=== PATIENT | female | born 1950 | race Caucasian/White ===

== ENCOUNTER → 2016-10-17 | Outpatient (CLI) | payer MEDICARE, BC ==
[~2016-10-17] MED LIST: SODIUM HYPOCHLORITE 0.125% 473 ML BTL ONE
[2016-10-17 12:52] LABS: CREATININE 0.79 mg/dl (0.44-1.00)
== END | disposition home or self-care (01) ==
LOC: LAB 11:40
PROVIDERS: ATTEND Surgery
DX: S71.101D Unspecified open wound, right thigh, subsequent encounter (principal)
CPT/HCPCS: 82565; 84520

== ENCOUNTER → 2016-10-19 | Outpatient (CLI) | payer MEDICARE ==
[~2016-10-19] MED LIST changes: +IOHEXOL 300MG/ML 150 ML BTL ONE; +SOD CHLORIDE 0.9% 100 ML ONE; -SODIUM HYPOCHLORITE 0.125% 473 ML BTL ONE
--- NOTE | 2016-10-19 17:32 | RADRPT ---
PROCEDURE: CT Abdomen and Pelvis with contrast. CLINICAL INDICATION: Abdomen and pelvis pain. Right thigh and pelvic fluid. TECHNIQUE: CT scan of the abdomen and pelvis with contrast was performed. The patient was scanned following the uncomplicated intravenous administration of 100 cc of Omnipaque-300. Coronal and sag ittal reformatted images were obtained from the axial source images. Images were reviewed on a high- resolution PACS workstation. Total exam DLP is 911.02 mGy-cm. CTDIvol is 14.26 mGy. One or more o f the following dose reduction techniques were used: Automated exposure control, adjustment of the m A and/or kV according to patient size, use of iterative reconstruction technique. COMPARISON: None. FINDINGS: There is mild atelectasis the right lung base. There is elevation of the right hemidiaphragm. The lung bases are otherwise normal. There is no pleural effusion or pericardial effusion. The heart s ize is normal. The liver is normal in size and diffusely decreased attenuation consistent with fatty metamorphosis. There is no focal hepatic lesion. The gallbladder and bile ducts are normal. The spleen is normal in size. There is no focal splenic lesion. Both adrenals are normal with no enlargement or mass. The pancreas is unremarkable with no mass or evidence of pancreatitis. Both kidneys demonstrate normal contrast enhancement. There is no renal mass or hydronephrosis. The abdominal aorta is not dilated. There is calcification in the aorta consistent with atheroscler osis. There is no retroperitoneal lymphadenopathy or mass. Multiple surgical clips are present bilaterally in the pelvis. The uterus and ovaries appear to be surgically absent. There is a fluid collection with peripheral enhancement anterior to the bladder just superior to the symphysis pubis measuring 1.7 x 1.7 x 1.9 cm in AP, transverse, and cranial cau michele dimensions. A second multiloculated fluid collection is present anterior to the right side of t he symphysis pubis measuring approximately 1.3 x 3.0 x 2.4 cm in AP, transverse, and cranial caudal dimensions. A tract extends from this fluid collection inferiorly into the adductor harvey muscle i n a region measuring approximately 1.7 x 1.6 by 5.5 cm in AP, transverse, and cranial caudal dimensi ons. This also has peripheral enhancement and extends to a skin ulcer in medial right thigh. The bladder and distal ureters are normal. The periappendiceal region is unremarkable with no evidence of appendicitis. The appendix is well se en and appears normal. The bowel and mesentery are otherwise normal. There is no other free fluid or free gas. There is moderate lysis of the symphysis pubis region bilaterally with right worse than left. There is absence of the cortex anteriorly on the right side in a region measuring up to 1.9 cm in length. There is no other lytic lesion. There are mild degenerative changes of the spine. IMPRESSION: 1. Mild atelectasis at the right lung base. 2. Elevation of the right hemidiaphragm. 3. Fatty metamorphosis of the liver. 4. Atherosclerosis. 5. Prior pelvic surgery hysterectomy and probable bilateral oophorectomy. Small fluid collections in the pelvis anterior to the bladder, adjacent to the symphysis pubis, and extending inferiorly in the right adductor harvey muscle to a skin ulcer. Findings are consistent w ith abscess with fistula to the skin. 6. Normal appendix. 7. Osteomyelitis of the symphysis pubis with right worse than left. 8. Mild degenerative changes of the spine. RPTAT: QQ .Prasanna Laws MD, Date Time Electronically viewed and signed by .Prasanna Laws MD, on 10/19/2016 17:31 .R/
== END | disposition home or self-care (01) ==
LOC: C/S 08:54
PROVIDERS: ATTEND Surgery
DX: S30.91XA Unspecified superficial injury of lower back and pelvis, initial encounter (principal); S70.921A Unspecified superficial injury of right thigh, initial encounter; X58.XXXA Exposure to other specified factors, initial encounter
CPT/HCPCS: 74178; Q9967

== ENCOUNTER 2016-11-07 11:50 | Inpatient (IN) | payer MEDICARE, BC ==
[~2016-11-07] VITALS: Ht 152.4 cm; Wt 66.7 kg
[2016-11-07 14:30] VITALS: BP 140/67; RESP 20
[2016-11-07 15:55] LABS: BASOPHIL # 0.1 10^3/ul (0.0-0.1); BASOPHILS % 1.2 % (0.0-2.0); EOSINOPHILS # 0.2 10^3/ul (0.0-0.5); EOSINOPHILS % 2.9 % (0.0-7.0); HEMATOCRIT 33.1 % (37.0-47.0); HEMOGLOBIN 10.7 g/dl (12.0-16.0); LYMPHOCYTES # 2.4 10^3/ul (0.8-2.9); LYMPHOCYTES % 34.9 % (15.0-51.0); MEAN CORPUSCULAR HEMOGLOBIN 28.9 pg (29.0-33.0); MEAN CORPUSCULAR HGB CONC 32.3 g/dl (32.0-37.0); MEAN CORPUSCULAR VOLUME 89.5 fl (82.0-101.0); MEAN PLATELET VOLUME 9.7 fl (7.4-10.4); MONOCYTE # 0.5 10^3/ul (0.3-0.9); NEUTROPHIL # 3.7 10^3/ul (1.6-7.5); NEUTROPHILS % 53.6 % (39.0-77.0); PLATELET COUNT 402 10^3/UL (140-415); RED CELL DISTRIBUTION WIDTH 14.6 % (11.5-14.5); WHITE BLOOD COUNT 6.9 10^3/ul (4.8-10.8)
--- NOTE | 2016-11-07 15:58 | RADRPT ---
PROCEDURE: XR Chest 1 View. CLINICAL INDICATION: Shortness of breath, pubic bone osteomyelitis. TECHNIQUE: AP view of the chest was obtained. COMPARISON: None. FINDINGS: Heart borders are obscured by the opacities. Calcified atherosclerosis is noted in the aorta. [place] christie right hemidiaphragm is identified. Associated atelectasis/consolidation of the right middle and lower lobes is seen. Blunting of the right costophrenic angle is noted. Osseous structures are inta ct. IMPRESSION: Calcified atherosclerosis in the aorta. Elevated right hemidiaphragm with associated atelectasis/consolidation of the right middle and lower lobes. Blunting of the right costophrenic angle that could reflect scarring or small pleural effusion. RPTAT: AA .Jaime Tucker MD, MD Date Time Electronically viewed and signed by .Jaime Tucker MD, on 11/07/2016 15:58 .P/
[2016-11-07 15:59] VITALS: Ht 152.4 cm; Wt 66.7 kg
[2016-11-07 16:01] LABS: INR 1.04; PROTIME 13.6 Sec (12.2-14.2); PT RATIO 1.1
[2016-11-07 16:02] LABS: PARTIAL THROMBOPLASTIN TIME 29.9 Sec (25.0-35.0)
[2016-11-07 16:08] LABS: ALBUMIN 3.4 g/dl (3.3-4.9); ALBUMIN/GLOBULIN RATIO 0.8; BILIRUBIN,INDIRECT 0.1 mg/dl (0-1.1); BILIRUBIN,TOTAL 0.1 mg/dl (0.2-1.3); C-REACTIVE PROTEIN 1.1 mg/dl (0.0-0.9); CALCIUM 8.8 mg/dl (8.4-10.2); CREATININE 0.85 mg/dl (0.44-1.00); POTASSIUM 3.5 mmol/L (3.5-5.1); TOTAL PROTEIN 7.6 g/dl (6.1-8.1)
[2016-11-07] MEDS ORDERED: SYN1 PO (16:13)
[2016-11-07] MEDS ORDERED: CITA10TA84 PO (16:13)
[2016-11-07] MEDS ORDERED: MONT10TA24 PO (16:13)
[2016-11-07] MEDS ORDERED: LISI10TA2 PO (16:13)
[2016-11-07] MEDS ORDERED: ASPI-535 PO (16:13)
[2016-11-07] MEDS ORDERED: ROPI1TAB PO (16:13)
[2016-11-07] MEDS ORDERED: GABA100C14 PO (16:13)
[2016-11-07] MEDS ORDERED: TRAZ50TA18 PO (16:13)
[2016-11-07] MEDS: D5W-0.45 NACL + KCL 20 MEQ 1,000 ML IV SCH (18:31)
[2016-11-07] MEDS: GABAPENTIN 100 MG CAP PO SCH (18:44)
[2016-11-07] MEDS: CITALOPRAM 20 MG TAB PO SCH (18:44)
[2016-11-07] MEDS: ASPIRIN (EC) 81 MG TAB PO SCH (18:44)
[2016-11-07] MEDS: LISINOPRIL 10 MG TAB PO SCH (18:44)
[2016-11-07 20:48] VITALS: BP 113/58; RESP 18
[2016-11-07] MEDS: ROPINIROLE 1 MG TAB PO SCH (20:57)
[2016-11-07] MEDS: traZODone 50 MG TAB PO SCH (20:57)
[2016-11-07] MEDS: MONTELUKAST 10 MG TAB PO SCH (20:58)
[2016-11-08 02:51] VITALS: BP 107/52; RESP 18
[2016-11-08] MEDS ORDERED: LEVOTHYROXINE 100 MCG TAB ONE (05:56)
[2016-11-08] MEDS: LEVOTHYROXINE 100 MCG TAB PO SCH (05:58)
[2016-11-08 08:04] VITALS: BP 135/58; RESP 20
--- NOTE | 2016-11-08 09:09 | CONS ---
DATE OF ADMISSION: 11/07/2016 DATE OF CONSULTATION: 11/07/2016 CHIEF COMPLAINT: Abdominal pain. HISTORY OF PRESENT ILLNESS: This is a 66-year-old female, with previous abscess of the pelvis and right thigh, who has been treated by Dr. Mack. According to the patient, she had drainage from the right inner thigh. She had a large open wound, which has been debrided and closed. She is complaining of pain in her abdomen. She denies any groin pain or knee pain. She denies any recent fevers or chills. She was previously on home IV antibiotics. She has no other complaints. PAST MEDICAL HISTORY: Hypertension, hypothyroidism, osteomyelitis. MEDICATIONS: 1. Celexa. 2. Gabapentin. 3. Synthroid. 4. Zestril. 5. Trazodone. PAST SURGICAL HISTORY: Right thigh incision and debridement by Dr. Mack. SOCIAL HISTORY: Denies tobacco, alcohol, or drug use. FAMILY HISTORY: Noncontributory. PHYSICAL EXAMINATION: VITAL SIGNS: 98.1, 113/58, 87, pulse, respiratory rate of 18. GENERAL: Patient is in no acute distress. She is alert and oriented x3. She is cooperative during the examination. EXTREMITIES: Right lower extremity: There is a dressing over the right medial thigh. No active drainage is seen. She has full range of motion of the left hip including 0-90 degrees of flexion, 50 degrees of external rotation, 20 degrees of internal rotation. She has no pain with axial loading or range of motion. She has 5/5 strength of her quadriceps, hamstring, gastroc soleus, and tibialis anterior. She has palpable dorsalis pedis pulses. DIAGNOSTIC STUDIES: CT abdomen pelvis 10/19/2016: There is a fluid collection in the pelvis anterior to the bladder. There is a fistula to the skin. There is osteomyelitis of the pubic symphysis. IMPRESSION: A 66-year-old female, with pubic symphysis, osteomyelitis, and a pelvic abscess. PLAN: I recommend continuation of IV antibiotics. I recommend Infectious Disease consult. No orthopedic intervention is required. Patient can be weightbearing as tolerated. Thank you for the consultation. I will follow the patient along. Dictated By: Tiffany Barber MD /zoila/eliana /Document#: [id number]
[2016-11-08] MEDS: GABAPENTIN 100 MG CAP PO SCH (09:17)
[2016-11-08] MEDS: D5W-0.45 NACL + KCL 20 MEQ 1,000 ML IV SCH ×2 (09:19→21:36)
[2016-11-08] MEDS: CITALOPRAM 20 MG TAB PO SCH (09:19)
[2016-11-08] MEDS: ASPIRIN (EC) 81 MG TAB PO SCH (09:19)
[2016-11-08] MEDS: LISINOPRIL 10 MG TAB PO SCH (09:22)
[2016-11-08 14:00] VITALS: BP 117/54; RESP 19
--- NOTE | 2016-11-08 15:42 | CONS ---
Date/Time of Note Date/Time of Note DATE: 11/08/16 TIME: 15:42 Assessment/Plan Assessment/Plan Chief Complaint/Hosp Course 1. Right thigh wound with fluid collection and osteomyelitis -ID and ortho consults -possible fluid collection drainage -local care with dakins -iv abx 2. Osteomyelitis: s/p abx course -as above 3. Atelectasis vs. consolidation poss pl effusion: R M/L lobes -further workup per medical team -ambulate -IS -supportive 4. HTN history: -nutrition and med optimization 5. Normocytic anemia: no acute blood loss -monitor -transfuse prn -workup per medical team 6. Hypothyroidism history -medical maintenance 7. Depression and anxiety -medical and psychiatric optimization 8. Epilepsy -medication control Patient seen and examined in collaboration with Dr. Iam Mack. Thank you. Problems: Consultation Date/Type/Reason Admit Date/Time Nov 07, 2016 at 13:27 Date of Consultation: Nov 08, 2016 Type of Consultation: surgical Reason for Consultation right thigh wound Hx of Present Illness iMroslava Franklin is a 66-year-old woman who is known to us, currently being seen at the wound clinic. She was recently hospitalized at [facility] for a large right thigh wound, status post debridement in September that is currently healing well. At that time she was found to have osteomyelitis and pyomyositis for which she was initially given IV antibiotics. At that time however, she developed a generalized body rash with welts and she was then switched to oral antibiotics. She has finished her course of oral antibiotics. Although her wound healing has progressed significantly, she still has a deep tunneling of the wound and MRI shows medial right upper thigh skin ulceration with sinus tract extending to the adductor longus muscle with a previously seen fluid collection appears decreased in size though there is persistent ill-defined phlegmonous change and adductor myositis, as well as osteo of right pubic symphysis. She was admitted to [facility] for further evaluation and treatment. Constitutional: No chills, No febrile Eyes: No visual change ENT: No congestion Respiratory: No cough, No shortness of breath Cardiovascular: No chest pain, No lightheadedness Gastrointestinal: No diarrhea, No nausea, No vomiting Genitourinary: No dysuria Musculoskeletal: No back pain, No neck pain Skin: other (wound right thigh), No bruising, No erythema Neurologic: No focal-weakness, No syncope Psychological: anxiety, No nl mood/affect Past Medical History 1. Asthma. 2. Depression. 3. Hypertension. 4. Hiatal hernia. 5. Hypothyroidism. 6. Neuropathy. 7. Cervical cancer history. 8. Right thigh skin necrosis and infection. 9. Arthritis. 10. Anxiety. 11. Hyponatremia. 12. Renal insufficiency. 13. Hyperglycemia. 14. Abnormal LFTs. 15. Significant hypoalbuminemia. 16. Coagulopathy. 17. Significant leukocytosis. 18. Anemia. 19. Thrombocytosis. 20. Possible sepsis. 21. right thigh abscess/ necrotic wound 22. osteomyelitis 23. pyomyositis Past Surgical History Total abdominal hysterectomy and oophorectomy. debridement of right thigh Family History Significant Family History: no pertinent family hx Social History Alcohol Use: none Smoking Status: Former smoker Drug Use: none Exam/Review of Systems Vital Signs Vitals Vital Signs Date Time Temp Pulse Resp B/P Pulse Ox O2 Delivery O2 Flow Rate FiO2 11/08/16 14:00 97.9 90 19 117/54 95 Intake and Output 11/07/16 11/07/16 11/08/16 15:00 23:00 07:00 Intake Total 100 ml 1210 ml Output Total 3 ml Balance 100 ml 1207 ml Exam Constitutional: alert, oriented Psych: anxiety Head: atraumatic, normocephalic Eyes: nl lids, nl sclera ENMT: mucosa pink and moist Neck: non-tender, supple Respiratory: normal air movement Cardiovascular: edema (ble), regular rate and rhythm Gastrointestinal: bowel sounds (x4 quads), non-tender, soft, No distended Musculoskeletal: muscle weakness, nl extremities to inspection Extremities: normal pulses Neurological: nl mental status, nl speech (soft/hoarse voice) Skin: other (right thigh wound, nonmalodorous, min drainage) Results Result Diagram: 11/07/16 1517 11/07/16 1517 Medications Medications Current Medications Potassium Chloride/Dextrose/ Sod Cl (D5-1/2ns + KCl 20 Meq) 1,000 ml @ 70 mls/ hr [id number] IV Last administered on 11/08/16 09:19; Admin Dose 70 MLS/HR; Start 11/07/16 at 17:00 Aspirin (Halfprin) 81 mg DAILY PO Last administered on 11/08/16 09:19; Admin Dose 81 MG; Start 11/07/16 at 18:00 Citalopram Hydrobromide (Celexa) 10 mg DAILY PO Last administered on 11/08/16 09:19; Admin Dose 10 MG; Start 11/07/16 at 18:00 Gabapentin (Neurontin) 100 mg DAILY PO Last administered on 11/08/16 09:17; Admin Dose 100 MG; Start 11/07/16 at 18:00 Lisinopril (Zestril) 10 mg DAILY PO Last administered on 11/08/16 09:22; Admin Dose 10 MG; Start 11/07/16 at 18:00 Montelukast Sodium (Singulair) 10 mg QHS PO Last administered on 11/07/16 20: 58; Admin Dose 10 MG; Start 11/07/16 at 21:00 Ropinirole HCl (Requip) 1 mg HS PO Last administered on 11/07/16 20:57; Admin Dose 1 MG; Start 11/07/16 at 21:00 Trazodone HCl (Desyrel) 50 mg QHS PO Last administered on 11/07/16 20:57; Admin Dose 50 MG; Start 11/07/16 at 21:00 Miscellaneous Information Patients own medicat... BID@ XX ; Start 11/08/16 at 10:00 OSWALDO BRENNER NP Nov 08, 2016 15:42 Miscellaneous Information Patients own medicat... BID@, XX ; Start 11/08/16 at 10:00 OSWALDO BRENNER NP Nov 08, 2016 15:42
--- NOTE | 2016-11-08 15:48 | RADRPT ---
PROCEDURE: MRI of the right hip and right lower extremity CLINICAL INDICATION: Pelvic and hip pain, concern for osteomyelitis near pubic bone TECHNIQUE: Multiplanar multisequence images of the pelvis and right lower extremity without IV con trast. Images were interpreted at a independent PACS workstation. COMPARISON: Correlation with CT of the abdomen and pelvis dated October 19, 2016 FINDINGS: There is a medial right upper thigh skin ulceration (axial 18) with sinus tract and mild phlegmonous changes within the adductor longus muscle extending near the pubic symphysis. The fluid collection appears improved from the prior study though there is still persistent edema/myositis within the add uctor musculature (coronal 13). There is no new discrete drainable fluid collection. There is decreased T1 and increased STIR bone marrow signal at the pubic symphysis, right greater th an left that is compatible with osteomyelitis. Accounting for differences in technique this is not s ignificantly changed from prior.. There is no evidence of acute fracture. Intra-articular evaluation of the right hip demonstrates mild osteoarthrosis with degenerative teari ng of the anterosuperior labrum and low grade adjacent chondral fissuring. There is a small nonspeci fic hip joint effusion and there is a mild iliopsoas bursitis (axial 12). There is no stress or trau matic fracture. There is no avascular necrosis. There is partial thickness tearing of the hamstring origins bilaterally background moderate tendinos is without evidence of high-grade tear (coronal 19). The gluteal insertions are intact noting mild p usman tendinous edema and mild bilateral greater trochanteric bursitis. The iliopsoas insertion is int act. There are sclerotic and erosive changes at the sacroiliac joints that may reflect an chronic inflamm atory sacroiliitis. This is incompletely assessed at the edge of the field of view. IMPRESSION: 1. Medial right upper thigh skin ulceration with sinus tract extending to the adductor longus muscle . The previously seen fluid collection appears decreased in size though there is persistent ill-defi vj phlegmonous change and adductor myositis. 2. Abnormal marrow signal at the pubic symphysis, right greater than left, likely reflecting osteomy elitis, as on prior. 3. Mild degenerative changes of the right hip including low grade chondral loss and degenerative tea ring of the anterosuperior labrum. Small right hip joint effusion with synovitis and mild right ilio psoas bursitis. 4. Bilateral hamstring origin tendinosis and partial-thickness tearing without high-grade tear. 5. Mild bilateral greater trochanteric bursitis. 6. Incompletely assessed chronic bilateral inflammatory sacroiliitis. 7. No stress/traumatic fracture or avascular necrosis. RPTAT: UU .Chaz Max MD, MD Date Time Electronically viewed and signed by .Chaz Max MD, on 11/08/2016 15:48 .K/
--- NOTE | 2016-11-08 17:28 | PN ---
Date/Time of Note Date/Time of Note DATE: 11/08/16 TIME: 17:26 Assessment/Plan Lines/Catheters IV Catheter Type (from [facility]): Peripheral IV Assessment/Plan Chief Complaint/Hosp Course 66 year old female with right pubic symphysis osteomyelitis No orthopaedic surgery intervention required at this time. Recommend outpatient antibiotics. Patient can be WBAT. Problems: Exam/Review of Systems Vital Signs Vitals Vital Signs Date Time Temp Pulse Resp B/P Pulse Ox O2 Delivery O2 Flow Rate FiO2 11/08/16 14:00 97.9 90 19 117/54 95 Intake and Output 11/07/16 11/07/16 11/08/16 15:00 23:00 07:00 Intake Total 100 ml 1210 ml Output Total 3 ml Balance 100 ml 1207 ml Exam Free Text/Dictation MRI Right Hip: 1. Medial right upper thigh skin ulceration with sinus tract extending to the adductor longus muscle. The previously seen fluid collection appears decreased in size though there is persistent ill-defined phlegmonous change and adductor myositis. 2. Abnormal marrow signal at the pubic symphysis, right greater than left, likely reflecting osteomyelitis, as on prior. 3. Mild degenerative changes of the right hip including low grade chondral loss and degenerative tearing of the anterosuperior labrum. Small right hip joint effusion with synovitis and mild right iliopsoas bursitis. 4. Bilateral hamstring origin tendinosis and partial-thickness tearing without high-grade tear. 5. Mild bilateral greater trochanteric bursitis. Results Result Diagram: 11/07/16 1517 11/07/16 1517 PIA HARLEY MD Nov 08, 2016 17:28
[2016-11-08 21:39] VITALS: BP 103/46; RESP 18
[2016-11-08] MEDS: MONTELUKAST 10 MG TAB PO SCH (21:47)
[2016-11-08] MEDS: traZODone 50 MG TAB PO SCH (21:47)
[2016-11-08] MEDS: ROPINIROLE 1 MG TAB PO SCH (21:47)
--- NOTE | 2016-11-09 00:13 | RADRPT ---
Vent Rate: 76 bpm RR Interval: 0 msec NV Interval: 172 msec QRS Duration: 74 msec QT Interval: 388 msec QTC Interval: 436 msec P-R-T Bullock: 69 - 79 - 68 degrees Normal sinus rhythm Low voltage QRS Borderline ECG Electronically Signed By: Jayden Mahan [id number]
[2016-11-09] MEDS: D5W-0.45 NACL + KCL 20 MEQ 1,000 ML IV SCH (01:53)
[2016-11-09 02:54] VITALS: BP 101/54; RESP 16
[2016-11-09] MEDS: LEVOTHYROXINE 100 MCG TAB PO SCH (06:21)
[2016-11-09 06:51] LABS: BASOPHIL # 0.1 10^3/ul (0.0-0.1); EOSINOPHILS # 0.3 10^3/ul (0.0-0.5); EOSINOPHILS % 5.7 % (0.0-7.0); HEMATOCRIT 33.3 % (37.0-47.0); HEMOGLOBIN 10.2 g/dl (12.0-16.0); LYMPHOCYTES # 2.2 10^3/ul (0.8-2.9); LYMPHOCYTES % 37.4 % (15.0-51.0); MEAN CORPUSCULAR HEMOGLOBIN 28.4 pg (29.0-33.0); MEAN CORPUSCULAR HGB CONC 30.6 g/dl (32.0-37.0); MEAN CORPUSCULAR VOLUME 92.8 fl (82.0-101.0); MEAN PLATELET VOLUME 9.6 fl (7.4-10.4); MONOCYTE # 0.6 10^3/ul (0.3-0.9); NEUTROPHIL # 2.7 10^3/ul (1.6-7.5); NEUTROPHILS % 45.4 % (39.0-77.0); PLATELET COUNT 355 10^3/UL (140-415); RED BLOOD COUNT 3.59 10^6/ul (4.20-5.40); RED CELL DISTRIBUTION WIDTH 14.7 % (11.5-14.5)
[2016-11-09 07:22] LABS: CALCIUM 8.9 mg/dl (8.4-10.2); CREATININE 0.85 mg/dl (0.44-1.00); MAGNESIUM 1.9 mg/dl (1.7-2.5); PHOSPHORUS 4.2 mg/dl (2.5-4.9); POTASSIUM 4.2 mmol/L (3.5-5.1)
[2016-11-09 08:00] VITALS: BP 96/52; RESP 20
[2016-11-09] MEDS: GABAPENTIN 100 MG CAP PO SCH (09:39)
[2016-11-09] MEDS: CITALOPRAM 20 MG TAB PO SCH (09:39)
[2016-11-09] MEDS: ASPIRIN (EC) 81 MG TAB PO SCH (09:39)
[2016-11-09] MEDS: LISINOPRIL 10 MG TAB PO SCH (09:40)
--- NOTE | 2016-11-09 10:57 | QN ---
Documentation Comment alert, oriented, Afebrile, hypotensive. Dr Conley notified for new consult. HENRI ROUSE Nov 09, 2016 10:57
--- NOTE | 2016-11-09 13:59 | HP ---
DATE OF ADMISSION: 11/07/2016 CHIEF COMPLAINT: Right thigh wound. HISTORY OF PRESENT ILLNESS: This is a 66-year-old female with a past medical history of hypothyroidism, depression, anxiety, anemia, and hypertension who was admitted to [facility] from the wound clinic for further management and debridement of her thigh wound. The patient was recently hospitalized and was seen in hospital for large right thigh wound. At that time, she was found to have osteomyelitis and pyomyositis for which she was given IV antibiotics. The patient then developed a generalized rash, and welts and was switched to oral antibiotics. The patient was subsequently discharged. She recently had an MRI, which continue to show medial right upper thigh skin ulceration and sinus track into the adductor longus muscle and fluid collection. The patient is also noted to have a osteomyelitis of the right pubic symphysis. She was seen in wound clinic and was brought back to [facility] for continued care. Since admission, the patient has been seen by Dr. Curtis Mack as well as orthopedist Dr. Quinn. Per Dr. Quinn, no orthopedic intervention was needed and recommended outpatient antibiotics. Currently at this time, the patient is stable. No acute distress. No fevers, chills, nausea, vomiting. PAST MEDICAL HISTORY: Asthma, depression, hypertension, hypothyroidism, neuropathy, history of cervical cancer, history of arthritis, anxiety, anemia, thrombocytosis, osteomyelitis, right diaphysis. PAST SURGICAL HISTORY: Status post total abdominal hysterectomy, oophorectomy, debridement of right thigh. FAMILY HISTORY: Noncontributory. SOCIAL HISTORY: Former smoker. MEDICATIONS: Reviewed and reconciled. REVIEW OF SYSTEMS: Fourteen point review of systems conducted. Pertinent positives in HPI, otherwise negative. PHYSICAL EXAMINATION: VITAL SIGNS: Blood pressure 96/53, respirations 20, pulse 83, temperature 98.0. HEENT: Head is normocephalic. Pupils are reactive to light. NECK: Supple. HEART: Regular rate. LUNGS: Diminished breath sounds at the base. ABDOMEN: Soft, nontender to palpation. No rebound or guarding. EXTREMITIES: Noted right thigh wound, malodorous with drainage. Otherwise, no edema noted. DERMATOLOGIC: No rashes. MUSCULOSKELETAL: No joint effusion. NEUROLOGIC: General weakness, but no focal deficits. MEDICATIONS: The patient's medications have been reviewed. LABORATORY DATA: White count 6.0, hemoglobin 10.2, hematocrit 33.3, platelet count 355. BNP within normal limits. ASSESSMENT AND PLAN: 1. Right thigh wound with fluid collection and osteomyelitis. The patient has been seen by general surgeon, Dr. Mack, as well with orthopedist Dr. Quinn. No orthopedic need for intervention at this time. Plan is continue IV antibiotics. Will follow up with General Surgery for any further recommendations. 2. Osteomyelitis with pubic symphysis. Continue current medical management. Continue IV antibiotics. 3. Hypertension. The patient is currently hypotensive. Continue to monitor. 4. Anemia. Monitor hemoglobin and hematocrit levels. 5. Hypothyroidism. Continue current medical management. 6. Depression and anxiety. Continue Celexa. 7. Sepsis like syndrome. Continue Requip. 8. Neuropathy. Continue Neurontin. 9. Recent history of rashes and hives, unclear etiology, improved. Continue to monitor. Please note, I spent up to 25 minutes face to face time with the patient. The patient is full code. Dictated By: Elvis Bass DO /zoila/rickey /Document#: [id number]
[2016-11-09 14:00] VITALS: BP_SYST 100; BP_SYST 143; BP_DIAS 75; RESP 18
--- NOTE | 2016-11-09 14:16 | PN ---
Date/Time of Note Date/Time of Note DATE: 11/09/16 TIME: 14:13 Assessment/Plan Lines/Catheters IV Catheter Type (from [facility]): Peripheral IV Assessment/Plan Chief Complaint/Hosp Course 1. Right thigh wound with fluid collection and osteomyelitis; ortho consult noted; awaiting ID -ID consults -possible fluid collection drainage -local care with dakins -iv abx 2. Osteomyelitis: s/p abx course -as above 3. Atelectasis vs. consolidation poss pl effusion: R M/L lobes -further workup per medical team -ambulate -IS -supportive 4. HTN history: -nutrition and med optimization 5. Normocytic anemia: no acute blood loss -monitor -transfuse prn -workup per medical team 6. Hypothyroidism history -medical maintenance 7. Depression and anxiety -medical and psychiatric optimization 8. Epilepsy -medication control Patient seen and examined in collaboration with Dr. Iam Mack. Thank you. Problems: Subjective 24 Hr Interval Summary Feels well. Min drainage from wound. Ambulating without difficulty. Awaiting ID consult. No fevers, chills, sob, congested cough, n/v/d/dysuria, myalgias, new weaknesses. Exam/Review of Systems Vital Signs Vitals Vital Signs Date Time Temp Pulse Resp B/P Pulse Ox O2 Delivery O2 Flow Rate FiO2 11/09/16 08:00 98.0 73 20 96/52 99 Intake and Output 11/08/16 11/08/16 11/09/16 15:00 23:00 07:00 Intake Total 210 ml 1840 ml 1210 ml Balance 210 ml 1840 ml 1210 ml Exam Free Text/Dictation Constitutional: alert, oriented Psych: anxiety Head: atraumatic, normocephalic Eyes: nl lids, nl sclera ENMT: mucosa pink and moist Neck: non-tender, supple Respiratory: normal air movement Cardiovascular: edema (ble), regular rate and rhythm Gastrointestinal: bowel sounds (x4 quads), non-tender, soft, No distended Musculoskeletal: muscle weakness, nl extremities to inspection Extremities: normal pulses Neurological: nl mental status, nl speech (soft/hoarse voice) Skin: other (right thigh wound, packed, nonmalodorous, min drainage) Results Result Diagram: 11/09/16 0615 11/09/16 0615 OSWALDO BRENNER NP Nov 09, 2016 14:16
[2016-11-09] MEDS: SODIUM HYPOCHLORITE 0.125% 473 ML BTL IRR SCH (16:59)
[2016-11-09 20:38] VITALS: BP 101/50; RESP 18
[2016-11-09] MEDS: ROPINIROLE 1 MG TAB PO SCH (21:38)
[2016-11-09] MEDS: MONTELUKAST 10 MG TAB PO SCH (21:38)
[2016-11-09] MEDS: traZODone 50 MG TAB PO SCH (21:38)
[2016-11-10 03:02] VITALS: BP 100/58; RESP 18
[2016-11-10] MEDS: LEVOTHYROXINE 100 MCG TAB PO SCH (06:13)
[2016-11-10 08:27] VITALS: BP 117/59; RESP 19
[2016-11-10] MEDS: GABAPENTIN 100 MG CAP PO SCH (08:33)
[2016-11-10] MEDS: LISINOPRIL 10 MG TAB PO SCH (08:34)
[2016-11-10] MEDS: CITALOPRAM 20 MG TAB PO SCH (08:34)
[2016-11-10] MEDS: ASPIRIN (EC) 81 MG TAB PO SCH (08:34)
--- NOTE | 2016-11-10 11:34 | PN ---
DATE: 11/10/2016 SUBJECTIVE DATA: The patient is stable. No events overnight. No fevers, chills, nausea, vomiting. OBJECTIVE DATA: VITAL SIGNS: Blood pressure 117/59, respirations 19, pulse 74, temperature 98.6. HEENT: Head is normocephalic. NECK: Supple. HEART: Regular rate. LUNGS: Diminished breath sounds base. ABDOMEN: Soft, nontender to palpation. No guarding. EXTREMITIES: Negative for clubbing, cyanosis. Positive wound left thigh. NEUROLOGIC: No change in exam. MEDICATIONS: Reviewed. LABORATORY AND DIAGNOSTIC DATA: Laboratory data has been reviewed. No new labs. ASSESSMENT AND PLAN: 1. Right thigh wound with fluid collection. The patient is currently being followed by General Surgery. Continue local wound care. Continue IV antibiotics. Follow up Infectious Disease recommendations. 2. Osteomyelitis of the pubic symphysis. Continue IV antibiotics. 3. Hypertension. Patient currently normotensive. Continue to monitor. 4. Anemia. Monitor H and H levels. 5. Hypothyroidism. Continue Synthroid. 6. Depression and anxiety. Continue Celexa. 7. Restless leg syndrome. Continue Requip. 8. Neuropathy. Continue Neurontin. 9. Recent history of rashes. 10. Gastrointestinal and deep venous thrombosis prophylaxis. Continue proton pump inhibitor and sequential leg squeezers. 11. Debility. Continue physical therapy. Dictated By: Elvis Bass DO /zoila/britt /Document#: [id number]
--- NOTE | 2016-11-10 11:36 | CONS ---
Date/Time of Note Date/Time of Note DATE: 11/10/16 TIME: 11:36 Consultation Date/Type/Reason Admit Date/Time Nov 07, 2016 at 13:27 Initial Consult Date 11/08/16 Type of Consultation: surgical Exam/Review of Systems Vital Signs Vitals Vital Signs Date Time Temp Pulse Resp B/P Pulse Ox O2 Delivery O2 Flow Rate FiO2 11/10/16 08:27 98.6 74 19 117/59 99 Intake and Output 11/09/16 11/09/16 11/10/16 15:00 23:00 07:00 Intake Total 210 ml 1100 ml 520 ml Balance 210 ml 1100 ml 520 ml Results Result Diagram: 11/09/1615 11/09/1615 Medications Medications Current Medications Aspirin (Halfprin) 81 mg DAILY PO Last administered on 11/10/16 08:34; Admin Dose 81 MG; Start 11/07/16 at 18:00 Citalopram Hydrobromide (Celexa) 10 mg DAILY PO Last administered on 11/10/16 08:34; Admin Dose 10 MG; Start 11/07/16 at 18:00 Gabapentin (Neurontin) 100 mg DAILY PO Last administered on 11/10/16 08:33; Admin Dose 100 MG; Start 11/07/16 at 18:00 Lisinopril (Zestril) 10 mg DAILY PO Last administered on 11/10/16 08:34; Admin Dose 10 MG; Start 11/07/16 at 18:00 Montelukast Sodium (Singulair) 10 mg QHS PO Last administered on 11/09/16 21: 38; Admin Dose 10 MG; Start 11/07/16 at 21:00 Ropinirole HCl (Requip) 1 mg HS PO Last administered on 11/09/16 21:38; Admin Dose 1 MG; Start 11/07/16 at 21:00 Trazodone HCl (Desyrel) 50 mg QHS PO Last administered on 11/09/16 21:38; Admin Dose 50 MG; Start 11/07/16 at 21:00 Miscellaneous Information Patients own medicat... BID@10,16 XX ; Start 11/08/16 at 10:00 Sodium Hypochlorite (Dakin'S (1/4 Strength)) 1 applic DAILY IRR Last administered on 9/20/17at 16:59; Admin Dose 1 APPLIC; Start 11/09/16 at 16:00 Enoxaparin Sodium (Lovenox) 40 mg DAILY SC ; Start 11/11/16 at 09:00 AURELIO LAUREN MD Nov 10, 2016 11:36
--- NOTE | 2016-11-10 12:34 | PN ---
Date/Time of Note Date/Time of Note DATE: 11/10/16 TIME: 12:31 Assessment/Plan Lines/Catheters IV Catheter Type (from [facility]): Peripheral IV Assessment/Plan Chief Complaint/Hosp Course 1. Right thigh wound with fluid collection and osteomyelitis; ortho consult noted; awaiting ID -ID consult -possible fluid collection drainage -local care with dakins -iv abx 2. Osteomyelitis: s/p abx course -as above -will likely need additional abx course 3. Atelectasis vs. consolidation poss pl effusion: R M/L lobes -further workup per medical team -ambulate -IS -supportive 4. HTN history: -nutrition and med optimization 5. Normocytic anemia: no acute blood loss -monitor -transfuse prn -workup per medical team 6. Hypothyroidism history -medical maintenance 7. Depression and anxiety -medical and psychiatric optimization 8. Epilepsy -medication control Patient seen and examined in collaboration with Dr. Iam Mack. Thank you. Problems: Subjective 24 Hr Interval Summary Awaiting ID consult. Sleepy. Feels well. No excessive wound drainage. No new wounds. No fevers, chills, sob, congested cough, n/v/d/dysuria, justin, dizziness, myalgias, paresthesias. Exam/Review of Systems Vital Signs Vitals Vital Signs Date Time Temp Pulse Resp B/P Pulse Ox O2 Delivery O2 Flow Rate FiO2 11/10/16 08:27 98.6 74 19 117/59 99 Intake and Output 11/09/16 11/09/16 11/10/16 15:00 23:00 07:00 Intake Total 210 ml 1100 ml 520 ml Balance 210 ml 1100 ml 520 ml Exam Free Text/Dictation Constitutional: alert, oriented Psych: anxiety Head: atraumatic, normocephalic Eyes: nl lids, nl sclera ENMT: mucosa pink and moist Neck: non-tender, supple Respiratory: normal air movement Cardiovascular: edema (ble), regular rate and rhythm Gastrointestinal: bowel sounds (x4 quads), non-tender, soft, No distended Musculoskeletal: muscle weakness, nl extremities to inspection Extremities: normal pulses Neurological: nl mental status, nl speech (soft/hoarse voice) Skin: other (right thigh wound, packed, nonmalodorous, min drainage no periwound erythema) Results Result Diagram: 11/09/16 0615 11/09/16 0615 OSWALDO BRENNER NP Nov 10, 2016 12:34
[2016-11-10] MEDS: SODIUM HYPOCHLORITE 0.125% 473 ML BTL IRR SCH (14:00)
[2016-11-10 15:02] VITALS: BP 102/50; RESP 18
--- NOTE | 2016-11-10 18:56 | CONS ---
Date/Time of Note Date/Time of Note DATE: 11/10/16 TIME: 18:49 Assessment/Plan Assessment/Plan Chief Complaint/Hosp Course 1. OM and continued muscular abscess per report 2. Hx of OM- Per [facility] EMR 8.17 CT showed: Large right anteromedial thigh necrotizing abscess with communicating large cutaneous ulcer, new since the prior CT of 09/15/2016. The superior margin of the abscess is at the anterior margin of the right pubic body and extends inferiorly along and into the right adductor longus muscle (pictured below). There is associated osteomyelitis at the right pubic body and adjacent extension of inflammatory changes to the anterior surface of the urinary bladder with focal perivesicular fluid and anterior bladder wall thickening. Packing material fills the majority of the abscess with small amounts of fluid persistent at the superior and inferior margins. Inflammatory changes are also seen extending into the right inguinal canal and right labia majora 3. Multiple chronic medical problems R: Ertapenem x 6 weeks serial imaging and esr will review outside reports and d/w rest of team. Problems: Consultation Date/Type/Reason Admit Date/Time Nov 07, 2016 at 13:27 Date of Consultation: Nov 10, 2016 Reason for Consultation abx recs Referring Provider: TARA ABDI MD Hx of Present Illness Mrs. Franklin is an unfortunate 66 yo female with a pmh of Asthma, depression, hypertension, hypothyroidism, neuropathy, history of cervical cancer, history of arthritis, anxiety, anemia, thrombocytosis, osteomyelitis of right diaphysis , now admitted with recent imaging suggesting progression of bone infection. She had previous allergic reactions to pip-tazo and Vanco. She recently completed a course of Levaquin. Her previous cxs from [facility] revealed GBS and [employer]. Constitutional: No chills, No febrile Eyes: No visual change ENT: No congestion Respiratory: No cough, No shortness of breath Cardiovascular: No chest pain, No lightheadedness Gastrointestinal: No diarrhea, No nausea, No vomiting Genitourinary: No dysuria Musculoskeletal: No back pain, No neck pain Skin: other (wound right thigh), No bruising, No erythema Neurologic: No focal-weakness, No syncope Psychological: anxiety Social History Alcohol Use: none Smoking Status: Former smoker Drug Use: none Exam/Review of Systems Vital Signs Vitals Vital Signs Date Time Temp Pulse Resp B/P Pulse Ox O2 Delivery O2 Flow Rate FiO2 9/21/17 15:02 97.7 85 18 102/50 97 Intake and Output 11/09/16 11/09/16 11/10/16 15:00 23:00 07:00 Intake Total 210 ml 1100 ml 520 ml Balance 210 ml 1100 ml 520 ml Exam Constitutional: alert, oriented, well developed Psych: nl mood/affect, no complaints Head: atraumatic, normocephalic Eyes: EOMI, PERRL, nl conjunctiva, nl lids, nl sclera ENMT: nl external ears & nose, nl lips & teeth, nl nasal mucosa & septum Neck: non-tender, supple Respiratory: clear to auscultation, normal air movement Cardiovascular: nl pulses, regular rate and rhythm Gastrointestinal: nl liver, spleen, non-tender, soft Results Result Diagram: 11/09/1615 11/09/16 0615 Medications Medications Current Medications Aspirin (Halfprin) 81 mg DAILY PO Last administered on 11/10/16 08:34; Admin Dose 81 MG; Start 11/07/16 at 18:00 Citalopram Hydrobromide (Celexa) 10 mg DAILY PO Last administered on 11/10/16 08:34; Admin Dose 10 MG; Start 11/07/16 at 18:00 Gabapentin (Neurontin) 100 mg DAILY PO Last administered on 11/10/16 08:33; Admin Dose 100 MG; Start 11/07/16 at 18:00 Lisinopril (Zestril) 10 mg DAILY PO Last administered on 11/10/16 08:34; Admin Dose 10 MG; Start 11/07/16 at 18:00 Montelukast Sodium (Singulair) 10 mg QHS PO Last administered on 11/09/16 21: 38; Admin Dose 10 MG; Start 11/07/16 at 21:00 Ropinirole HCl (Requip) 1 mg HS PO Last administered on 11/09/16 21:38; Admin Dose 1 MG; Start 11/07/16 at 21:00 Trazodone HCl (Desyrel) 50 mg QHS PO Last administered on 11/09/16 21:38; Admin Dose 50 MG; Start 11/07/16 at 21:00 Miscellaneous Information Patients own medicat... BID@10,16 XX Last administered on 11/10/16 16:00; Admin Dose 1 EA; Start 11/08/16 at 10:00 Sodium Hypochlorite (Dakin'S (1/4 Strength)) 1 applic DAILY IRR Last administered on 11/10/16 14:00; Admin Dose 1 APPLIC; Start 11/09/16 at 16:00 Enoxaparin Sodium (Lovenox) 40 mg DAILY SC ; Start 11/11/16 at 09:00 AURELIO LAUREN MD Nov 10, 2016 18:56
[2016-11-10 20:17] VITALS: BP 104/51; RESP 18
[2016-11-10] MEDS: ERTAPENEM SODIUM 1 GM in SOD CHLORIDE 0.9% 100 ML IVPB SCH (20:57)
[2016-11-10] MEDS: MONTELUKAST 10 MG TAB PO SCH (20:58)
[2016-11-10] MEDS: ROPINIROLE 1 MG TAB PO SCH (20:59)
[2016-11-10] MEDS: traZODone 50 MG TAB PO SCH (20:59)
[2016-11-11 03:31] VITALS: BP 116/53; RESP 18
[2016-11-11 05:45] LABS: BASOPHIL # 0.1 10^3/ul (0.0-0.1); EOSINOPHILS # 0.4 10^3/ul (0.0-0.5); EOSINOPHILS % 6.4 % (0.0-7.0); HEMATOCRIT 32.2 % (37.0-47.0); HEMOGLOBIN 9.8 g/dl (12.0-16.0); LYMPHOCYTES % 34.3 % (15.0-51.0); MEAN CORPUSCULAR HEMOGLOBIN 28.4 pg (29.0-33.0); MEAN CORPUSCULAR HGB CONC 30.4 g/dl (32.0-37.0); MEAN CORPUSCULAR VOLUME 93.3 fl (82.0-101.0); MEAN PLATELET VOLUME 9.7 fl (7.4-10.4); MONOCYTE # 0.5 10^3/ul (0.3-0.9); MONOCYTES % 8.1 % (0.0-11.0); NEUTROPHIL # 2.9 10^3/ul (1.6-7.5); NEUTROPHILS % 49.7 % (39.0-77.0); PLATELET COUNT 339 10^3/UL (140-415); RED BLOOD COUNT 3.45 10^6/ul (4.20-5.40); RED CELL DISTRIBUTION WIDTH 14.6 % (11.5-14.5); WHITE BLOOD COUNT 5.8 10^3/ul (4.8-10.8)
[2016-11-11] MEDS: LEVOTHYROXINE 100 MCG TAB PO SCH (06:09)
[2016-11-11 08:00] VITALS: BP 101/55; RESP 20
--- NOTE | 2016-11-11 08:04 | PN ---
Date/Time of Note Date/Time of Note DATE: 11/11/16 TIME: 07:59 Assessment/Plan Lines/Catheters IV Catheter Type (from [facility]): Peripheral IV Assessment/Plan Chief Complaint/Hosp Course 1. Right thigh wound with fluid collection and osteomyelitis; ortho and ID consult noted -possible fluid collection drainage-will reimage -local care with dakins -iv abx 2. Osteomyelitis: s/p abx course; restarted on iv abx -as above 3. Atelectasis vs. consolidation poss pl effusion: R M/L lobes -further workup per medical team -ambulate -IS -supportive 4. HTN history: -nutrition and med optimization 5. Normocytic anemia: no acute blood loss -monitor -transfuse prn -workup per medical team 6. Hypothyroidism history -medical maintenance 7. Depression and anxiety -medical and psychiatric optimization 8. Epilepsy -medication control Patient seen and examined in collaboration with Dr. Iam Mack. Thank you. Problems: Subjective 24 Hr Interval Summary Continues to feel well. Reports sleeping well overnight. No fevers, chills, sob , congested cough, cp, palpitations, justin, dizziness, n/v/d/dysuria, excessive wound drainage or wound odor. Started on ertapenem yesterday by ID. Exam/Review of Systems Vital Signs Vitals Vital Signs Date Time Temp Pulse Resp B/P Pulse Ox O2 Delivery O2 Flow Rate FiO2 11/11/16 03:31 98.3 79 18 116/53 97 Intake and Output 11/10/16 11/10/16 11/11/16 15:00 23:00 07:00 Intake Total 880 ml 3 ml Balance 880 ml 3 ml Exam Free Text/Dictation Constitutional: alert, oriented Psych: min anxiety Head: atraumatic, normocephalic Eyes: nl lids, nl sclera ENMT: mucosa pink and moist Neck: non-tender, supple Respiratory: normal air movement Cardiovascular: min edema (ble), regular rate and rhythm Gastrointestinal: bowel sounds (x4 quads), non-tender, soft, No distended Musculoskeletal: muscle weakness, nl extremities to inspection Extremities: normal pulses Neurological: nl mental status, nl speech (soft/hoarse voice) Skin: other (right thigh wound, packed, nonmalodorous, no periwound erythema) Results Result Diagram: 11/11/16 0455 11/09/16 0615 OSWALDO BRENNER NP Nov 11, 2016 08:04
[2016-11-11] MEDS: LISINOPRIL 10 MG TAB PO SCH (09:00)
[2016-11-11] MEDS: CITALOPRAM 20 MG TAB PO SCH (09:09)
[2016-11-11] MEDS: ASPIRIN (EC) 81 MG TAB PO SCH (09:09)
[2016-11-11] MEDS: GABAPENTIN 100 MG CAP PO SCH (09:09)
[2016-11-11] MEDS: ENOXAPARIN 40 MG/0.4 ML SYG SC SCH (09:13)
[2016-11-11] MEDS: SODIUM HYPOCHLORITE 0.125% 473 ML BTL IRR SCH (09:13)
--- NOTE | 2016-11-11 10:12 | PN ---
DATE: 11/11/2016 SUBJECTIVE DATA: The patient is stable. No events overnight. No fevers, chills, nausea, vomiting. OBJECTIVE DATA: VITAL SIGNS: Blood pressure 101/55, temperature 98.7, respirations 20, pulse 100. HEENT: Head is normocephalic. NECK: Supple. HEART: Regular rate. LUNGS: Diminished breath sounds at the base. ABDOMEN: Soft. Nontender to palpation. No rebound or guarding. EXTREMITIES: Negative for clubbing, cyanosis. No edema. DERMATOLOGIC: No rashes. MUSCULOSKELETAL: No joint effusion. NEUROLOGIC: No change in exam. MEDICATIONS: The patient's medications have been reviewed. LABORATORY AND DIAGNOSTIC DATA: Laboratory data shows white count 5.8, hemoglobin 9.8, hematocrit 32.2, platelet count 339. ASSESSMENT AND PLAN: 1. Right thigh wound with fluid collection. The patient is status post debridement by General Surgery. Currently being seen by Infectious Disease. Continue IV antibiotics for 6 weeks. 2. Osteomyelitis, previous sepsis. Continue IV antibiotics. 3. Hypertension. Continue to monitor. 4. Anemia. Monitor hemoglobin and hematocrit levels. 5. Hypothyroidism. Continue Synthroid. 6. Depression and anxiety. Continue Celexa. 7. Restless leg syndrome. Continue Requip. 8. Neuropathy. Continue Neurontin. 9. Recent history of rash. Continue to monitor. 10. Debility. Continue physical therapy. We will place acute rehab evaluation. 11. Gastrointestinal and deep venous thrombosis prophylaxis. Continue PPI and sequential leg squeezers. Dictated By: Elvis Bass DO /[email or web address] /Document#: [id number]
--- NOTE | 2016-11-11 13:42 | CONS ---
Date/Time of Note Date/Time of Note DATE: 11/11/16 TIME: 13:38 Assessment/Plan Assessment/Plan Chief Complaint/Hosp Course - Residual R upper thigh fluid collection, adductor myositis, probable OM, and small R hip joint effusion with synovitis per MRI 11/08/2016 - H/o R thigh large necrotizing abscess, pyomyositis and associated with OM on CT 09/15/2016 - treated with 6 wks of abx (initially with vanco, zosyn and clinda and then with levaquin till 10/27/2016) - S/p R thigh debridement and I&D of large deep groin and retroperitoneal abscess extending to the R thigh on 09/22/2016; superficial cx 09/15/16 grew Staph epi. and GBS, and intra op culture on 09/22/16 grew GBS. S. epi likely colonizers. Pt's strain of GBS is sensitive to all (including levaquin) except resistant to tetracycline and azithromycin. - H/o rash, possibly due to vancomycin or pip/tazo. - HTN - Hypothyroidism - Anxiety/Depression - Restless leg syndrome Recommendations: - Continue Ertapenem (11/10/2016-) x 6 weeks via PICC - Serial imaging and ESR Management d/w pt, NOREEN Olmedo and Dr. Conley Problems: Consultation Date/Type/Reason Admit Date/Time Nov 07, 2016 at 13:27 Initial Consult Date 11/10/16 Type of Consultation: Infectious Disease Referring Provider: TARA ABDI MD 24 HR Interval Summary Free Text/Dictation ARU eval pending per d/w nursing staff. Had mild R thigh pain. [place] sleepy after taking last medicine. Denies SOB, abd pain, n/v/d, dysuria. [facility] reviewed. Exam/Review of Systems Vital Signs Vitals Vital Signs Date Time Temp Pulse Resp B/P Pulse Ox O2 Delivery O2 Flow Rate FiO2 11/11/16 08:00 98.7 100 20 101/55 96 Intake and Output 11/10/16 11/10/16 11/11/16 15:00 23:00 07:00 Intake Total 880 ml 3 ml Balance 880 ml 3 ml Exam Constitutional: alert, oriented, well developed Head: atraumatic, normocephalic Eyes: nl sclera Neck: supple Respiratory: clear to auscultation, normal air movement Cardiovascular: regular rate and rhythm Gastrointestinal: non-tender, soft Extremities: No clubbing, No cyanosis, No edema Neurological: nl mental status, other (speech is soft, non-focal) Skin: nl turgor, other (Left thigh dresssing c/d/i) Results Result Diagram: 11/11/16 0455 11/09/16 0615 Results 24 hrs Laboratory Tests Test 11/11/16 04:55 White Blood Count 5.8 Red Blood Count 3.45 L Hemoglobin 9.8 L Hematocrit 32.2 L Mean Corpuscular Volume 93.3 Mean Corpuscular Hemoglobin 28.4 L Mean Corpuscular Hemoglobin Concent 30.4 L Red Cell Distribution Width 14.6 H Platelet Count 339 Mean Platelet Volume 9.7 Neutrophils % 49.7 Lymphocytes % 34.3 Monocytes % 8.1 Eosinophils % 6.4 Basophils % 1.0 Nucleated Red Blood Cells % 0.0 Neutrophils # 2.9 Lymphocytes # 2.0 Monocytes # 0.5 Eosinophils # 0.4 Basophils # 0.1 Nucleated Red Blood Cells # 0.0 Medications Medications Current Medications Aspirin (Halfprin) 81 mg DAILY PO Last administered on 11/11/16 09:09; Admin Dose 81 MG; Start 11/07/16 at 18:00 Citalopram Hydrobromide (Celexa) 10 mg DAILY PO Last administered on 11/11/16 09:09; Admin Dose 10 MG; Start 11/07/16 at 18:00 Gabapentin (Neurontin) 100 mg DAILY PO Last administered on 11/11/16 09:09; Admin Dose 100 MG; Start 11/07/16 at 18:00 Lisinopril (Zestril) 10 mg DAILY PO Last administered on 11/10/16 08:34; Admin Dose 10 MG; Start 11/07/16 at 18:00 Montelukast Sodium (Singulair) 10 mg QHS PO Last administered on 11/10/16 20: 58; Admin Dose 10 MG; Start 11/07/16 at 21:00 Ropinirole HCl (Requip) 1 mg HS PO Last administered on 11/10/16 20:59; Admin Dose 1 MG; Start 11/07/16 at 21:00 Trazodone HCl (Desyrel) 50 mg QHS PO Last administered on 11/10/16 20:59; Admin Dose 50 MG; Start 11/07/16 at 21:00 Miscellaneous Information Patients own medicat... BID@10,16 XX Last administered on 11/11/16 09:13; Admin Dose 1 EA; Start 11/08/16 at 10:00 Sodium Hypochlorite (Dakin'S (1/4 Strength)) 1 applic DAILY IRR Last administered on 11/11/16 09:13; Admin Dose 1 APPLIC; Start 11/09/16 at 16:00 Enoxaparin Sodium 40 mg 40 mg DAILY SC Last administered on 11/11/16 09:13; Admin Dose 40 MG; Start 11/11/16 at 09:00 Ertapenem/Sodium Chloride (Invanz/NS) 100 ml @ 200 mls/hr Q24H IVPB Last administered on 11/10/16 20:57; Admin Dose 200 MLS/HR; Start 11/10/16 at 20:00 Procedures Procedures MRI R hip and RLE 11/08/2016: 1. Medial right upper thigh skin ulceration with sinus tract extending to the adductor longus muscle. The previously seen fluid collection appears decreased in size though there is persistent ill-defined phlegmonous change and adductor myositis. 2. Abnormal marrow signal at the pubic symphysis, right greater than left, likely reflecting osteomyelitis, as on prior. 3. Mild degenerative changes of the right hip including low grade chondral loss and degenerative tearing of the anterosuperior labrum. Small right hip joint effusion with synovitis and mild right iliopsoas bursitis. 4. Bilateral hamstring origin tendinosis and partial-thickness tearing without high-grade tear. 5. Mild bilateral greater trochanteric bursitis. 6. Incompletely assessed chronic bilateral inflammatory sacroiliitis. 7. No stress/traumatic fracture or avascular necrosis. JAMES MCMANUS NP Nov 11, 2016 13:42 5. Mild bilateral greater trochanteric bursitis. 6. Incompletely assessed chronic bilateral inflammatory sacroiliitis. 7. No stress/traumatic fracture or avascular necrosis. JAMES MCMANUS NP Nov 11, 2016 13:42
[2016-11-11 14:00] VITALS: BP 108/57; RESP 18
[2016-11-11] MEDS: ERTAPENEM SODIUM 1 GM in SOD CHLORIDE 0.9% 100 ML IVPB SCH (19:48)
[2016-11-11 20:00] VITALS: BP 107/55; RESP 18
[2016-11-11] MEDS: MONTELUKAST 10 MG TAB PO SCH (20:29)
[2016-11-11] MEDS: traZODone 50 MG TAB PO SCH (20:29)
[2016-11-11] MEDS: ROPINIROLE 1 MG TAB PO SCH (20:29)
[2016-11-12 02:00] VITALS: BP 131/58; RESP 19
[2016-11-12] MEDS: LEVOTHYROXINE 100 MCG TAB PO SCH (06:58)
[2016-11-12 08:05] VITALS: BP 130/66; RESP 20
[2016-11-12] MEDS: SODIUM HYPOCHLORITE 0.125% 473 ML BTL IRR SCH (08:18)
[2016-11-12] MEDS: GABAPENTIN 100 MG CAP PO SCH (08:18)
[2016-11-12] MEDS: ASPIRIN (EC) 81 MG TAB PO SCH (08:18)
[2016-11-12] MEDS: CITALOPRAM 20 MG TAB PO SCH (08:18)
[2016-11-12] MEDS: LISINOPRIL 10 MG TAB PO SCH (08:19)
[2016-11-12] MEDS: ENOXAPARIN 40 MG/0.4 ML SYG SC SCH (08:20)
--- NOTE | 2016-11-12 10:38 | PN ---
DATE: 11/12/2016 SUBJECTIVE DATA: The patient is stable. No events overnight. No fevers, chills, nausea, vomiting. OBJECTIVE DATA: VITAL SIGNS: Blood pressure 130/66, respirations 20, pulse 89, and temperature 98.5. HEENT: Head is normocephalic. NECK: Supple. HEART: Regular rate. LUNGS: Diminished breath sounds at the base. ABDOMEN: Soft, nontender to palpation. No guarding. EXTREMITIES: Negative for clubbing, cyanosis. No edema. DERMATOLOGIC: No rashes. MUSCULOSKELETAL: No joint effusion. NEUROLOGIC: No change in exam. MEDICATIONS: Reviewed. LABORATORY AND DIAGNOSTIC DATA: Reviewed. No new labs. ASSESSMENT AND PLAN: 1. Right thigh wound status post-debridement. Continue current medical management. Follow up with General Surgery. 2. Pubic symphysis osteomyelitis. Continue current IV antibiotics. 3. Hypertension. Continue to monitor. 4. Anemia. Monitor hemoglobin and hematocrit levels. 5. Hypothyroidism. Continue Synthroid. 6. Depression, anxiety. Continue Celexa. 7. Restless leg syndrome. Continue Requip. 8. Neuropathy. Continue Neurontin. 9. Debility. Continue physical therapy. 10. Gastrointestinal and deep venous thrombosis prophylaxis. Continue PPI and sequential leg squeezers. 11. Patient has acute rehab evaluation pending. Dictated By: Elvis Bass DO /[email or web address] /Document#: [id number]
[2016-11-12 14:00] VITALS: BP 97/55; RESP 18
--- NOTE | 2016-11-12 18:07 | CONS ---
Date/Time of Note Date/Time of Note DATE: 11/12/16 TIME: 18:06 Assessment/Plan Assessment/Plan Chief Complaint/Hosp Course - Residual R upper thigh fluid collection, adductor myositis, probable OM, and small R hip joint effusion with synovitis per MRI 11/08/2016 - H/o R thigh large necrotizing abscess, pyomyositis and associated with OM on CT 09/15/2016 - treated with 6 wks of abx (initially with vanco, zosyn and clinda and then with levaquin till 10/27/2016) - S/p R thigh debridement and I&D of large deep groin and retroperitoneal abscess extending to the R thigh on 09/22/2016; superficial cx 09/15/16 grew Staph epi. and GBS, and intra op culture on 09/22/16 grew GBS. S. epi likely colonizers. Pt's strain of GBS is sensitive to all (including levaquin) except resistant to tetracycline and azithromycin. - H/o rash, possibly due to vancomycin or pip/tazo. - HTN - Hypothyroidism - Anxiety/Depression - Restless leg syndrome Recommendations: - Continue Ertapenem (11/10/2016-) x 6 weeks via PICC - Serial imaging and ESR Problems: Consultation Date/Type/Reason Admit Date/Time Nov 07, 2016 at 13:27 Initial Consult Date 11/08/16 Type of Consultation: Infectious Disease Referring Provider: TARA ABDI MD Exam/Review of Systems Vital Signs Vitals Vital Signs Date Time Temp Pulse Resp B/P Pulse Ox O2 Delivery O2 Flow Rate FiO2 11/12/16 14:00 97.6 82 18 97/55 100 Intake and Output 11/11/16 11/11/16 11/12/16 15:00 23:00 07:00 Intake Total 820 ml 850 ml Balance 820 ml 850 ml Results Result Diagram: 11/11/16 0455 11/09/16 0615 Medications Medications Current Medications Aspirin (Halfprin) 81 mg DAILY PO Last administered on 11/12/16 08:18; Admin Dose 81 MG; Start 11/07/16 at 18:00 Citalopram Hydrobromide (Celexa) 10 mg DAILY PO Last administered on 11/12/16 08:18; Admin Dose 10 MG; Start 11/07/16 at 18:00 Gabapentin (Neurontin) 100 mg DAILY PO Last administered on 11/12/16 08:18; Admin Dose 100 MG; Start 11/07/16 at 18:00 Lisinopril (Zestril) 10 mg DAILY PO Last administered on 11/12/16 08:19; Admin Dose 10 MG; Start 11/07/16 at 18:00 Montelukast Sodium (Singulair) 10 mg QHS PO Last administered on 11/11/16 20: 29; Admin Dose 10 MG; Start 11/07/16 at 21:00 Ropinirole HCl (Requip) 1 mg HS PO Last administered on 11/11/16 20:29; Admin Dose 1 MG; Start 11/07/16 at 21:00 Trazodone HCl (Desyrel) 50 mg QHS PO Last administered on 11/11/16 20:29; Admin Dose 50 MG; Start 11/07/16 at 21:00 Miscellaneous Information Patients own medicat... BID@10,16 XX Last administered on 11/11/16 15:58; Admin Dose 1 EA; Start 11/08/16 at 10:00 Sodium Hypochlorite (Dakin'S (1/4 Strength)) 1 applic DAILY IRR Last administered on 11/12/16 08:18; Admin Dose 1 APPLIC; Start 11/09/16 at 16:00 Enoxaparin Sodium 40 mg 40 mg DAILY SC Last administered on 11/12/16 08:20; Admin Dose 40 MG; Start 11/11/16 at 09:00 Ertapenem/Sodium Chloride (Invanz/NS) 100 ml @ 200 mls/hr Q24H IVPB Last administered on 11/11/16 19:48; Admin Dose 200 MLS/HR; Start 11/10/16 at 20:00 AURELIO LAUREN MD Nov 12, 2016 18:07
[2016-11-12 20:38] VITALS: BP 103/65; RESP 18
[2016-11-12] MEDS: MONTELUKAST 10 MG TAB PO SCH (20:50)
[2016-11-12] MEDS: traZODone 50 MG TAB PO SCH (20:50)
[2016-11-12] MEDS: ERTAPENEM SODIUM 1 GM in SOD CHLORIDE 0.9% 100 ML IVPB SCH (20:50)
[2016-11-12] MEDS: ROPINIROLE 1 MG TAB PO SCH (20:50)
--- NOTE | 2016-11-12 23:23 | PN ---
Date/Time of Note Date/Time of Note DATE: 11/12/16 TIME: 23:23 Assessment/Plan Lines/Catheters IV C[facility] Type (from [facility] Saline Lock Assessment/Plan Chief Complaint/Hosp Course 1. Right thigh wound with fluid collection and osteomyelitis; ortho and ID consult noted -possible fluid collection drainage-will reimage -local care with dakins -iv abx per ID -patient may be discharged per medical team with IV abx and wound care with follow up at wound care center 2. Osteomyelitis: s/p abx course; restarted on iv abx -as above 3. Atelectasis vs. consolidation poss pl effusion: R M/L lobes -further workup per medical team -ambulate -IS -supportive 4. HTN history: -nutrition and med optimization 5. Normocytic anemia: no acute blood loss -monitor -transfuse prn -workup per medical team 6. Hypothyroidism history -medical maintenance 7. Depression and anxiety -medical and psychiatric optimization 8. Epilepsy -medication control Patient seen and examined in collaboration with Dr. Iam Mack. Thank you. Problems: Subjective 24 Hr Interval Summary Feels well. No acute changes in the wound. No pain/discomfort from wound. No fevers, chills, sob, congested cough, n/v/d/dysuria. Continues on iV abx. Exam/Review of Systems Vital Signs Vitals Vital Signs Date Time Temp Pulse Resp B/P Pulse Ox O2 Delivery O2 Flow Rate FiO2 11/13/16 08:15 98.7 88 18 101/50 96 Intake and Output 11/12/16 11/12/16 11/13/16 15:00 23:00 07:00 Intake Total 1880 ml 300 ml Balance 1880 ml 300 ml Exam Free Text/Dictation Constitutional: alert, oriented Psych: pleasant Head: atraumatic, normocephalic Eyes: nl lids, nl sclera ENMT: mucosa pink and moist Neck: non-tender, supple Respiratory: normal air movement Cardiovascular: min edema (ble), regular rate and rhythm Gastrointestinal: bowel sounds (x4 quads), non-tender, soft, No distended Musculoskeletal: muscle weakness, nl extremities to inspection Extremities: normal pulses Neurological: nl mental status, nl speech (soft/hoarse voice) Skin: other (right thigh wound, packed, nonmalodorous, no periwound erythema) Results Result Diagram: 11/11/16 0455 11/09/16 0615 OSWALDO BRENNER NP Nov 12, 2016 23:23
[2016-11-13 02:00] VITALS: BP 98/54; RESP 19
[2016-11-13] MEDS: LEVOTHYROXINE 100 MCG TAB PO SCH (06:11)
[2016-11-13 08:15] VITALS: BP 101/50; RESP 18
[2016-11-13] MEDS: GABAPENTIN 100 MG CAP PO SCH (08:27)
[2016-11-13] MEDS: ASPIRIN (EC) 81 MG TAB PO SCH (08:27)
[2016-11-13] MEDS: CITALOPRAM 20 MG TAB PO SCH (08:27)
[2016-11-13] MEDS: LISINOPRIL 10 MG TAB PO SCH (08:28)
[2016-11-13] MEDS: SODIUM HYPOCHLORITE 0.125% 473 ML BTL IRR SCH (08:29)
[2016-11-13] MEDS: ENOXAPARIN 40 MG/0.4 ML SYG SC SCH (08:32)
--- NOTE | 2016-11-13 10:30 | PN ---
DATE: 11/13/2016 SUBJECTIVE DATA: Patient is stable. No events overnight. No fevers, chills, nausea, vomiting. OBJECTIVE DATA: VITAL SIGNS: Blood pressure 101/50, respirations 18, pulse , temperature 98.7. HEENT: Head is normocephalic. NECK: Supple. HEART: Regular rate. LUNGS: Diminished breath sounds at the base. ABDOMEN: Soft, nontender to palpation. No rebound, guarding. EXTREMITIES: Negative for clubbing, cyanosis. No edema. DERMATOLOGIC: Clean, no rashes. MUSCULOSKELETAL: No joint effusion. NEUROLOGIC: No change in exam. SKIN: The patient's wound is noted. LABORATORY DATA: Reviewed. ASSESSMENT AND PLAN: 1. Right thigh wound, status post debridement. Continue current medical management. Continue follow up. Continue wound care. 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 Will need PICC line placement. 3. Hypertension. Continue to monitor. 4. Anemia. Monitor hemoglobin and hematocrit levels. 5. Hypothyroidism. Continue Synthroid. 6. Depression, anxiety. Continue Celexa. 7. Restless legs syndrome. Continue Requip. 8. Neuropathy. Continue Neurontin. 9. Debility. Continue physical therapy. 10. Gastrointestinal and deep venous thrombosis prophylaxis. Continue PPI and sequential leg squeezers. DISPOSITION: The patient needs a PICC line placed, then the patient will be discharged home with home health. Dictated By: Elvis Bass DO /zoila/mary kate /Document#: [id number]
[2016-11-13] MEDS ORDERED: LIDOCAINE 1% (MPF) 5 ML VIAL SC ONE (14:00)
[2016-11-13 14:24] VITALS: BP 132/60; RESP 18
--- NOTE | 2016-11-13 17:52 | CONS ---
Date/Time of Note Date/Time of Note DATE: 11/13/16 TIME: 17:51 Assessment/Plan Assessment/Plan Chief Complaint/Hosp Course - Residual R upper thigh fluid collection, adductor myositis, probable OM, and small R hip joint effusion with synovitis per MRI 11/08/2016 - H/o R thigh large necrotizing abscess, pyomyositis and associated with OM on CT 09/15/2016 - treated with 6 wks of abx (initially with vanco, zosyn and clinda and then with levaquin till 10/27/2016) - S/p R thigh debridement and I&D of large deep groin and retroperitoneal abscess extending to the R thigh on 09/22/2016; superficial cx 09/15/16 grew Staph epi. and GBS, and intra op culture on 09/22/16 grew GBS. S. epi likely colonizers. Pt's strain of GBS is sensitive to all (including levaquin) except resistant to tetracycline and azithromycin. - H/o rash, possibly due to vancomycin or pip/tazo. - HTN - Hypothyroidism - Anxiety/Depression - Restless leg syndrome Recommendations: - Continue Ertapenem (11/10/2016-) x 6 weeks via PICC - Serial imaging and ESR Problems: Consultation Date/Type/Reason Admit Date/Time Nov 07, 2016 at 13:27 Initial Consult Date 11/08/16 Type of Consultation: Infectious Disease Referring Provider: TARA ABDI MD Exam/Review of Systems Vital Signs Vitals Vital Signs Date Time Temp Pulse Resp B/P Pulse Ox O2 Delivery O2 Flow Rate FiO2 11/13/16 14:24 97.7 82 18 132/60 98 Intake and Output 11/12/16 11/12/16 11/13/16 15:00 23:00 07:00 Intake Total 1880 ml 300 ml Balance 1880 ml 300 ml Results Result Diagram: 11/11/16 0455 11/09/16 0615 Medications Medications Current Medications Aspirin (Halfprin) 81 mg DAILY PO Last administered on 11/13/16 08:27; Admin Dose 81 MG; Start 11/07/16 at 18:00 Citalopram Hydrobromide (Celexa) 10 mg DAILY PO Last administered on 11/13/16 08:27; Admin Dose 10 MG; Start 11/07/16 at 18:00 Gabapentin (Neurontin) 100 mg DAILY PO Last administered on 11/13/16 08:27; Admin Dose 100 MG; Start 11/07/16 at 18:00 Lisinopril (Zestril) 10 mg DAILY PO Last administered on 11/12/16 08:19; Admin Dose 10 MG; Start 11/07/16 at 18:00 Montelukast Sodium (Singulair) 10 mg QHS PO Last administered on 11/12/16 20: 50; Admin Dose 10 MG; Start 11/07/16 at 21:00 Ropinirole HCl (Requip) 1 mg HS PO Last administered on 11/12/16 20:50; Admin Dose 1 MG; Start 11/07/16 at 21:00 Trazodone HCl (Desyrel) 50 mg QHS PO Last administered on 11/12/16 20:50; Admin Dose 50 MG; Start 11/07/16 at 21:00 Miscellaneous Information Patients own medicat... BID@10,16 XX Last administered on 11/11/16 15:58; Admin Dose 1 EA; Start 11/08/16 at 10:00 Sodium Hypochlorite (Dakin'S (1/4 Strength)) 1 applic DAILY IRR Last administered on 11/13/16 08:29; Admin Dose 1 APPLIC; Start 11/09/16 at 16:00 Enoxaparin Sodium 40 mg 40 mg DAILY SC Last administered on 11/13/16 08:32; Admin Dose 40 MG; Start 11/11/16 at 09:00 Ertapenem/Sodium Chloride (Invanz/NS) 100 ml @ 200 mls/hr Q24H IVPB Last administered on 11/12/16 20:50; Admin Dose 200 MLS/HR; Start 11/10/16 at 20:00 AURELIO LAUREN MD Nov 13, 2016 17:52
[2016-11-13 19:59] VITALS: BP 104/54; RESP 16
[2016-11-13] MEDS: MONTELUKAST 10 MG TAB PO SCH (21:18)
[2016-11-13] MEDS: ERTAPENEM SODIUM 1 GM in SOD CHLORIDE 0.9% 100 ML IVPB SCH (21:18)
[2016-11-13] MEDS: ROPINIROLE 1 MG TAB PO SCH (21:18)
[2016-11-13] MEDS: traZODone 50 MG TAB PO SCH (21:18)
[2016-11-14 02:22] VITALS: BP 136/60; RESP 18
[2016-11-14] MEDS: LEVOTHYROXINE 100 MCG TAB PO SCH (06:10)
[2016-11-14 08:02] VITALS: BP 110/60; RESP 17
[2016-11-14] MEDS ORDERED: INFLUENZA VIRUS VACCINE 0.5 ML SYG IM* ONE (09:00)
[2016-11-14] MEDS: LISINOPRIL 10 MG TAB PO SCH (09:00)
[2016-11-14] MEDS: GABAPENTIN 100 MG CAP PO SCH (09:12)
[2016-11-14] MEDS: CITALOPRAM 20 MG TAB PO SCH (09:12)
[2016-11-14] MEDS: ENOXAPARIN 40 MG/0.4 ML SYG SC SCH (09:13)
[2016-11-14] MEDS: ASPIRIN (EC) 81 MG TAB PO SCH (09:20)
--- NOTE | 2016-11-14 10:46 | CONS ---
Date/Time of Note Date/Time of Note DATE: 11/14/16 TIME: 10:44 Assessment/Plan Assessment/Plan Chief Complaint/Hosp Course assessment/impression Note: Pt's gettig PICC and I could not interview or examine her - Residual R upper thigh fluid collection, adductor myositis, probable OM, and small R hip joint effusion with synovitis per MRI 11/08/2016 - H/o R thigh large necrotizing abscess, pyomyositis and associated with OM on CT 09/15/2016 - treated with 6 wks of antibiotics (initially with vanco, pip/ tazo and clinda and then with levofloxacin until 10/27/2016) - S/p R thigh debridement and I&D of large deep groin and retroperitoneal abscess extending to the R thigh on 09/22/2016; superficial cx 09/15/16 grew Staph epi. and GBS, and intra op culture on 09/22/16 grew GBS. S. epi likely colonizers. Pt's strain of GBS was sensitive to all (including levo) except resistant to tetracycline and azithromycin. - H/o rash, possibly due to vancomycin or pip/tazo. - HTN - Hypothyroidism - Anxiety/Depression - Restless leg syndrome recommendations: - monitor ESR; 93 on 11/07/2016 - continue ertapenem (11/10/2016-) x 6 weeks via PICC - please check weekly CBC and BMP while Pt's on antibiotic - follow up with Dr. Conley as outpatient management d/w Pt's RN Problems: Consultation Date/Type/Reason Admit Date/Time Nov 07, 2016 at 13:27 Initial Consult Date 11/10/16 Type of Consultation: Infectious Disease Referring Provider: TARA ABDI MD 24 HR Interval Summary Free Text/Dictation Pt's gettig PICC and I could not interview or examine her Exam/Review of Systems Vital Signs Vitals Vital Signs Date Time Temp Pulse Resp B/P Pulse Ox O2 Delivery O2 Flow Rate FiO2 11/14/16 08:02 97.9 74 17 110/60 99 Intake and Output 11/13/16 11/13/16 11/14/16 15:00 23:00 07:00 Intake Total 100 ml 520 ml Balance 100 ml 520 ml Exam Pt's gettig PICC and I could not interview or examine her Results Result Diagram: 11/11/16 0455 Medications Medications Current Medications Aspirin (Halfprin) 81 mg DAILY PO Last administered on 11/14/16 09:20; Admin Dose 81 MG; Start 11/07/16 at 18:00 Citalopram Hydrobromide (Celexa) 10 mg DAILY PO Last administered on 11/14/16 09:12; Admin Dose 10 MG; Start 11/07/16 at 18:00 Gabapentin (Neurontin) 100 mg DAILY PO Last administered on 11/14/16 09:12; Admin Dose 100 MG; Start 11/07/16 at 18:00 Lisinopril (Zestril) 10 mg DAILY PO Last administered on 11/12/16 08:19; Admin Dose 10 MG; Start 11/07/16 at 18:00 Montelukast Sodium (Singulair) 10 mg QHS PO Last administered on 11/13/16 21: 18; Admin Dose 10 MG; Start 11/07/16 at 21:00 Ropinirole HCl (Requip) 1 mg HS PO Last administered on 11/13/16 21:18; Admin Dose 1 MG; Start 11/07/16 at 21:00 Trazodone HCl (Desyrel) 50 mg QHS PO Last administered on 11/13/16 21:18; Admin Dose 50 MG; Start 11/07/16 at 21:00 Miscellaneous Information Patients own medicat... BID@10,16 XX Last administered on 11/11/16 15:58; Admin Dose 1 EA; Start 11/08/16 at 10:00 Sodium Hypochlorite (Dakin'S (1/4 Strength)) 1 applic DAILY IRR Last administered on 11/13/16 08:29; Admin Dose 1 APPLIC; Start 11/09/16 at 16:00 Enoxaparin Sodium 40 mg 40 mg DAILY SC Last administered on 11/14/16 09:13; Admin Dose 40 MG; Start 11/11/16 at 09:00 Ertapenem/Sodium Chloride (Invanz/NS) 100 ml @ 200 mls/hr Q24H IVPB Last administered on 11/13/16 21:18; Admin Dose 200 MLS/HR; Start 11/10/16 at 20:00 ANNE MENENDEZ M.D. Nov 14, 2016 10:46
--- NOTE | 2016-11-14 11:35 | RADRPT ---
PROCEDURE: US guidance for PICC line CLINICAL INDICATION: PICC line placement TECHNIQUE: Multiple real-time images were acquired of the patient's arm utilizing a high resolutio n transducer. This was performed by the PICC line nurse for venous access. COMPARISON: None FINDINGS: Ultrasound guidance for PICC line placement. IMPRESSION: Ultrasound guidance for PICC line placement. RPTAT: AA .Jay Morrissey MD, MD Date Time Electronically viewed and signed by .Jay Morrissey MD, on 11/14/2016 11:35 .S/
--- NOTE | 2016-11-14 12:02 | CONS ---
Date/Time of Note Date/Time of Note DATE: 11/14/16 TIME: 12:01 Assessment/Plan Assessment/Plan Chief Complaint/Hosp Course assessment/impression - Residual R upper thigh fluid collection, adductor myositis, probable OM, and small R hip joint effusion with synovitis per MRI 11/08/2016 - H/o R thigh large necrotizing abscess, pyomyositis and associated with OM on CT 09/15/2016 - treated with 6 wks of antibiotics (initially with vanco, pip/ tazo and clinda and then with levofloxacin until 10/27/2016) - S/p R thigh debridement and I&D of large deep groin and retroperitoneal abscess extending to the R thigh on 09/22/2016; superficial cx 09/15/16 grew Staph epi. and GBS, and intra op culture on 09/22/16 grew GBS. S. epi likely colonizers. Pt's strain of GBS was sensitive to all (including levo) except resistant to tetracycline and azithromycin. - H/o rash, possibly due to vancomycin or pip/tazo. - HTN - Hypothyroidism - Anxiety/Depression - Restless leg syndrome recommendations: - monitor ESR; 93 on 11/07/2016 - continue ertapenem (11/10/2016-) x 6 weeks via PICC - please check weekly CBC and BMP while Pt's on antibiotic - follow up with Dr. Conley as outpatient management d/w Pt's RN, Pt Problems: Consultation Date/Type/Reason Admit Date/Time Nov 07, 2016 at 13:27 Initial Consult Date 11/10/16 Type of Consultation: Infectious Disease Referring Provider: TARA ABDI MD 24 HR Interval Summary Constitutional: no complaints Detailed Summary Eyes: no complaints ENT: no complaints Respiratory: no complaints Cardiovascular: no complaints Gastrointestinal: no complaints Genitourinary: no complaints Musculoskeletal: other (denies pain of R thigh), restricted range of motion, No swelling Skin: no complaints, No bruising, No rash Endocrine: no complaints Exam/Review of Systems Vital Signs Vitals Vital Signs Date Time Temp Pulse Resp B/P Pulse Ox O2 Delivery O2 Flow Rate FiO2 11/14/16 08:02 97.9 74 17 110/60 99 Intake and Output 11/13/16 11/13/16 11/14/16 15:00 23:00 07:00 Intake Total 100 ml 520 ml Balance 100 ml 520 ml Exam Constitutional: alert, oriented, well developed Psych: nl mood/affect, no complaints Head: atraumatic, normocephalic Eyes: nl conjunctiva, nl lids ENMT: nl external ears & nose, nl nasal mucosa & septum Neck: supple Respiratory: clear to auscultation, normal air movement Cardiovascular: nl pulses, regular rate and rhythm Gastrointestinal: non-tender, soft Musculoskeletal: other (wound of R thigh is packed non-erythematous, non- indurated and non-TTP), swelling (mild, R thigh) Extremities: No edema 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, nl mental status, nl speech Skin: nl turgor, No rash or lesions Results Result Diagram: 11/11/16 0455 Medications Medications Current Medications Aspirin (Halfprin) 81 mg DAILY PO Last administered on 11/14/16 09:20; Admin Dose 81 MG; Start 11/07/16 at 18:00 Citalopram Hydrobromide (Celexa) 10 mg DAILY PO Last administered on 11/14/16 09:12; Admin Dose 10 MG; Start 11/07/16 at 18:00 Gabapentin (Neurontin) 100 mg DAILY PO Last administered on 11/14/16 09:12; Admin Dose 100 MG; Start 11/07/16 at 18:00 Lisinopril (Zestril) 10 mg DAILY PO Last administered on 11/12/16 08:19; Admin Dose 10 MG; Start 11/07/16 at 18:00 Montelukast Sodium (Singulair) 10 mg QHS PO Last administered on 11/13/16 21: 18; Admin Dose 10 MG; Start 11/07/16 at 21:00 Ropinirole HCl (Requip) 1 mg HS PO Last administered on 11/13/16 21:18; Admin Dose 1 MG; Start 11/07/16 at 21:00 Trazodone HCl (Desyrel) 50 mg QHS PO Last administered on 11/13/16 21:18; Admin Dose 50 MG; Start 11/07/16 at 21:00 Miscellaneous Information Patients own medicat... BID@10,16 XX Last administered on 11/11/16 15:58; Admin Dose 1 EA; Start 11/08/16 at 10:00 Sodium Hypochlorite (Dakin'S (1/4 Strength)) 1 applic DAILY IRR Last administered on 11/13/16 08:29; Admin Dose 1 APPLIC; Start 11/09/16 at 16:00 Enoxaparin Sodium 40 mg 40 mg DAILY SC Last administered on 11/14/16 09:13; Admin Dose 40 MG; Start 11/11/16 at 09:00 Ertapenem/Sodium Chloride (Invanz/NS) 100 ml @ 200 mls/hr Q24H IVPB Last administered on 11/13/16 21:18; Admin Dose 200 MLS/HR; Start 11/10/16 at 20:00 ANNE MENENDEZ M.D. Nov 14, 2016 12:02
--- NOTE | 2016-11-14 12:26 | RADRPT ---
PROCEDURE: XR Chest. CLINICAL INDICATION: Check PICC line position. TECHNIQUE: Single frontal view. COMPARISON: 11/07/2016. FINDINGS: There is a left arm PICC line with the tip in the upper right atrium. There is elevation of the rig ht hemidiaphragm and atelectasis or consolidation at the right lung base. The lungs are otherwise cl ear. The heart is enlarged. There is calcification in the aorta consistent with atherosclerosis. There is no pleural effusion. There is no pneumothorax. IMPRESSION: 1. Left arm PICC line tip in satisfactory position. 2. Elevation of the right hemidiaphragm and right basilar atelectasis or pneumonia, unchanged. 3. Cardiomegaly and atherosclerosis. RPTAT: QQ .Prasanna Laws MD, Date Time Electronically viewed and signed by .Prasanna Laws MD, on 11/14/2016 12:25 .R/
--- NOTE | 2016-11-14 13:15 | PN ---
DATE: 11/14/2016 SUBJECTIVE DATA: The patient is stable. No events overnight. No fevers, chills, nausea, vomiting. The patient is awaiting for PICC line placement. No other events noted. OBJECTIVE DATA: VITAL SIGNS: Blood pressure is 110/60, respirations 17, pulse 74, temperature 97.9. HEENT: Head is normocephalic. NECK: Supple. HEART: Regular rate. LUNGS: Diminished breath sounds at the base. ABDOMEN: Soft, nontender to palpation. No rebound or guarding. EXTREMITIES: Negative for clubbing, cyanosis. No edema. The patient's wound on the right side is noted. DERMATOLOGY: Clean, no rashes. MUSCULOSKELETAL: No joint effusion. NEUROLOGIC: No focal deficits. No change in exam. ASSESSMENT AND PLAN: 1. Right thigh wound. The patient is status post debridement. Continue current medical management. Continue wound care. 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 The patient is pending PEG tube placement. I will continue IV ertapenem for 6 week course. 3. Hypertension. Continue to monitor. 4. Anemia. Monitor H and H levels. 5. Hypothyroidism. Continue Synthroid. 6. Depression and anxiety. Continue Celexa. 7. Restless leg syndrome. Continue Requip. 8. Neuropathy. Continue Neurontin. 9. Debility. Continue physical therapy. 10. Gastrointestinal and deep venous thrombosis prophylaxis. DISPOSITION: The patient is pending PICC line placement and will be discharged home with [facility]. Dictated By: Elvis Bass DO /zoila/britt /Document#: [id number]
--- NOTE | 2016-11-14 13:20 | PN ---
Date/Time of Note Date/Time of Note DATE: 11/14/16 TIME: 13:18 Assessment/Plan Lines/Catheters IV [facility]ter Type (from [facility]): PICC Line Assessment/Plan Chief Complaint/Hosp Course 1. Right thigh wound with fluid collection and osteomyelitis; ortho and ID consult noted -possible fluid collection drainage-will reimage -local care with dakins -iv abx per ID -patient may be discharged per medical team with IV abx and wound care with follow up at wound care center 2. Osteomyelitis: s/p abx course; restarted on iv abx -as above 3. Atelectasis vs. consolidation poss pl effusion: R M/L lobes -further workup per medical team -ambulate -IS -supportive 4. HTN history: -nutrition and med optimization 5. Normocytic anemia: no acute blood loss -monitor -transfuse prn -workup per medical team 6. Hypothyroidism history -medical maintenance 7. Depression and anxiety -medical and psychiatric optimization 8. Epilepsy -medication control Thank you, Problems: Subjective 24 Hr Interval Summary Feels well. No acute changes in the wound. No pain/discomfort from wound. No fevers, chills, sob, congested cough, n/v/d/dysuria. Continues on iV abx. Exam/Review of Systems Vital Signs Vitals Vital Signs Date Time Temp Pulse Resp B/P Pulse Ox O2 Delivery O2 Flow Rate FiO2 11/14/16 08:02 97.9 74 17 110/60 99 Intake and Output 11/13/16 11/13/16 11/14/16 15:00 23:00 07:00 Intake Total 100 ml 520 ml Balance 100 ml 520 ml Exam Free Text/Dictation Constitutional: alert, oriented Psych: pleasant Head: atraumatic, normocephalic Eyes: nl lids, nl sclera ENMT: mucosa pink and moist Neck: non-tender, supple Respiratory: normal air movement Cardiovascular: min edema (ble), regular rate and rhythm Gastrointestinal: bowel sounds (x4 quads), non-tender, soft, No distended Musculoskeletal: muscle weakness, nl extremities to inspection Extremities: normal pulses Neurological: nl mental status, nl speech (soft/hoarse voice) Skin: other (right thigh wound, packed, nonmalodorous, no periwound erythema) Results Result Diagram: 11/11/16 0455 TARA ABDI MD Nov 14, 2016 13:20
[2016-11-14 14:30] VITALS: BP 146/64; RESP 19
[2016-11-14] MEDS: SODIUM HYPOCHLORITE 0.125% 473 ML BTL IRR SCH (15:20)
[2016-11-14 19:37] VITALS: BP 147/61; RESP 20
[2016-11-14] MEDS: ERTAPENEM SODIUM 1 GM in SOD CHLORIDE 0.9% 100 ML IVPB SCH (20:47)
[2016-11-14] MEDS: traZODone 50 MG TAB PO SCH (20:47)
[2016-11-14] MEDS: ROPINIROLE 1 MG TAB PO SCH (20:47)
[2016-11-14] MEDS: MONTELUKAST 10 MG TAB PO SCH (20:47)
[2016-11-15 02:02] VITALS: BP 126/58; RESP 18
[2016-11-15] MEDS: LEVOTHYROXINE 100 MCG TAB PO SCH (06:24)
[2016-11-15 07:30] VITALS: BP 132/60; RESP 18
--- NOTE | 2016-11-15 10:16 | CONS ---
Date/Time of Note Date/Time of Note DATE: 11/15/16 TIME: 10:15 Assessment/Plan Assessment/Plan Chief Complaint/Hosp Course assessment/impression - Residual R upper thigh fluid collection, adductor myositis, probable OM, and small R hip joint effusion with synovitis per MRI 11/08/2016 - H/o R thigh large necrotizing abscess, pyomyositis and associated with OM on CT 09/15/2016 - treated with 6 wks of antibiotics (initially with vanco, pip/ tazo and clinda and then with levofloxacin until 10/27/2016) - S/p R thigh debridement and I&D of large deep groin and retroperitoneal abscess extending to the R thigh on 09/22/2016; superficial cx 09/15/16 grew Staph epi. and GBS, and intra op culture on 09/22/16 grew GBS. S. epi likely colonizers. Pt's strain of GBS was sensitive to all (including levo) except resistant to tetracycline and azithromycin. - H/o rash, possibly due to vancomycin or pip/tazo. - HTN - Hypothyroidism - Anxiety/Depression - Restless leg syndrome recommendations: - monitor ESR; 93 on 11/07/2016 - draw CBC and BMP today - continue ertapenem (11/10/2016-) x 6 weeks via PICC - please check weekly CBC and BMP while Pt's on antibiotic - follow up with Dr. Conley as outpatient management d/w Pt's RN, Pt Problems: Consultation Date/Type/Reason Admit Date/Time Nov 07, 2016 at 13:27 Initial Consult Date 11/10/16 Type of Consultation: Infectious Disease Referring Provider: TARA ABDI MD 24 HR Interval Summary Constitutional: no complaints Detailed Summary Eyes: no complaints ENT: no complaints Respiratory: no complaints Cardiovascular: no complaints Gastrointestinal: no complaints Genitourinary: no complaints Musculoskeletal: restricted range of motion Skin: skin lesions (R thigh, little pain only with movement) Neurologic: no complaints Exam/Review of Systems Vital Signs Vitals Vital Signs Date Time Temp Pulse Resp B/P Pulse Ox O2 Delivery O2 Flow Rate FiO2 11/15/16 07:30 98.1 76 18 132/60 97 Intake and Output 11/14/16 11/14/16 11/15/16 15:00 23:00 07:00 Intake Total 820 ml 280 ml Balance 820 ml 280 ml Exam Constitutional: alert, oriented, well developed Psych: nl mood/affect, no complaints Head: atraumatic, normocephalic Eyes: nl conjunctiva, nl lids ENMT: nl external ears & nose, nl nasal mucosa & septum Neck: supple Respiratory: clear to auscultation, normal air movement Cardiovascular: nl pulses, regular rate and rhythm Musculoskeletal: other (wound of R thigh is packed), range of motion Extremities: edema Neurological: 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, nl mental status, nl speech Skin: nl turgor Results Result Diagram: 11/11/16 0455 Medications Medications Current Medications Aspirin (Halfprin) 81 mg DAILY PO Last administered on 11/14/16 09:20; Admin Dose 81 MG; Start 11/07/16 at 18:00 Citalopram Hydrobromide (Celexa) 10 mg DAILY PO Last administered on 11/14/16 09:12; Admin Dose 10 MG; Start 11/07/16 at 18:00 Gabapentin (Neurontin) 100 mg DAILY PO Last administered on 11/14/16 09:12; Admin Dose 100 MG; Start 11/07/16 at 18:00 Lisinopril (Zestril) 10 mg DAILY PO Last administered on 11/12/16 08:19; Admin Dose 10 MG; Start 11/07/16 at 18:00 Montelukast Sodium (Singulair) 10 mg QHS PO Last administered on 11/14/16 20: 47; Admin Dose 10 MG; Start 11/07/16 at 21:00 Ropinirole HCl (Requip) 1 mg HS PO Last administered on 11/14/16 20:47; Admin Dose 1 MG; Start 11/07/16 at 21:00 Trazodone HCl (Desyrel) 50 mg QHS PO Last administered on 11/14/16 20:47; Admin Dose 50 MG; Start 11/07/16 at 21:00 Miscellaneous Information Patients own medicat... BID@10,16 XX Last administered on 11/11/16 15:58; Admin Dose 1 EA; Start 11/08/16 at 10:00 Sodium Hypochlorite (Dakin'S (1/4 Strength)) 1 applic DAILY IRR Last administered on 11/14/16 15:20; Admin Dose 1 APPLIC; Start 11/09/16 at 16:00 Enoxaparin Sodium 40 mg 40 mg DAILY SC Last administered on 11/14/16 09:13; Admin Dose 40 MG; Start 11/11/16 at 09:00 Ertapenem/Sodium Chloride (Invanz/NS) 100 ml @ 200 mls/hr Q24H IVPB Last administered on 11/14/16 20:47; Admin Dose 200 MLS/HR; Start 11/10/16 at 20:00 ANNE MENENDEZ M.D. Nov 15, 2016 10:16
[2016-11-15] MEDS: CITALOPRAM 20 MG TAB PO SCH (10:45)
[2016-11-15] MEDS: GABAPENTIN 100 MG CAP PO SCH (10:46)
[2016-11-15] MEDS: ASPIRIN (EC) 81 MG TAB PO SCH (10:47)
[2016-11-15] MEDS: LISINOPRIL 10 MG TAB PO SCH (10:48)
[2016-11-15] MEDS: SODIUM HYPOCHLORITE 0.125% 473 ML BTL IRR SCH (10:49)
[2016-11-15] MEDS: ENOXAPARIN 40 MG/0.4 ML SYG SC SCH (10:57)
[2016-11-15 12:01] LABS: BASOPHIL # 0.1 10^3/ul (0.0-0.1); BASOPHILS % 0.9 % (0.0-2.0); EOSINOPHILS # 0.2 10^3/ul (0.0-0.5); EOSINOPHILS % 3.2 % (0.0-7.0); HEMATOCRIT 34.6 % (37.0-47.0); HEMOGLOBIN 10.8 g/dl (12.0-16.0); LYMPHOCYTES # 2.2 10^3/ul (0.8-2.9); MEAN CORPUSCULAR HEMOGLOBIN 28.4 pg (29.0-33.0); MEAN CORPUSCULAR HGB CONC 31.2 g/dl (32.0-37.0); MEAN CORPUSCULAR VOLUME 91.1 fl (82.0-101.0); MEAN PLATELET VOLUME 9.7 fl (7.4-10.4); MONOCYTE # 0.5 10^3/ul (0.3-0.9); MONOCYTES % 7.3 % (0.0-11.0); NEUTROPHIL # 3.6 10^3/ul (1.6-7.5); NEUTROPHILS % 55.3 % (39.0-77.0); PLATELET COUNT 345 10^3/UL (140-415); RED CELL DISTRIBUTION WIDTH 14.1 % (11.5-14.5); WHITE BLOOD COUNT 6.6 10^3/ul (4.8-10.8)
[2016-11-15 12:14] LABS: CALCIUM 8.9 mg/dl (8.4-10.2); CREATININE 0.89 mg/dl (0.44-1.00)
--- NOTE | 2016-11-15 12:34 | DS ---
DATE OF ADMISSION: 11/07/2016 DATE OF DISCHARGE: HOSPITAL COURSE: This is a 66-year-old female with a past medical history of hypothyroidism, depression, anxiety, anemia, hypertension who presented to [facility] from wound clinic for further evaluation of left thigh wound. The patient was subsequently admitted, was seen by general surgeon, Dr. Mack, had debridement of the wound, was also seen by orthopedist, Dr. Quinn, who determined no orthopedic intervention needed. The patient had imaging studies, which showed osteomyelitis of the pubic symphysis. The patient also was seen by Infectious Disease and was started on Invanz with a course of 6 weeks for underlying osteomyelitis. Currently at this time, the patient is stable. No acute distress. She will be discharged back to sn[facility] facility where she will continue IV antibiotics. FINAL DIAGNOSES: 1. thigh wound, status post debridement. 2. Pubic symphysis osteomyelitis. 3. Hypertension. 4. Anemia. 5. Hypothyroidism. 6. Depression, anxiety. 7. Restless leg syndrome. 8. Neuropathy. 9. Debility. 10. Gastrointestinal and deep venous thrombosis prophylaxis. DISCHARGE CONDITION: Please note, at time of transfer, patient is stable. No acute distress. DISCHARGE MEDICATIONS: See reconciliation list. Please note, I spent over 40 minutes time preparing patient's discharge. Dictated By: Elvis Bass DO /[email or web address] /Document#: [id number]
[2016-11-15 14:08] VITALS: BP 131/58; RESP 16
[2016-11-15] MEDS: ERTAPENEM SODIUM 1 GM in SOD CHLORIDE 0.9% 100 ML IVPB SCH (17:32)
[2016-11-15] MEDS: MONTELUKAST 10 MG TAB PO SCH (17:56)
[2016-11-15] MEDS: ROPINIROLE 1 MG TAB PO SCH (17:56)
[2016-11-15] MEDS: traZODone 50 MG TAB PO SCH (17:56)
[2016-11-15] MEDS ORDERED: MUPIROCIN 2% 22 GM OINT TOP SCH (21:00)
== END 2016-11-15 18:50 | DRG 540 ==
LOC: PP2 13:27
PROVIDERS: ADMIT Internal Medicine Nephrology; ATTEND Internal Medicine Nephrology
PROC: 02H633Z Insertion of Infusion Device into Right Atrium, Percutaneous Approach (ICD-10-PCS; principal; 2016-11-14)
DX: M86.8X8 Other osteomyelitis, other site (principal); M60.051 Infective myositis, right thigh; G62.9 Polyneuropathy, unspecified; L02.415 Cutaneous abscess of right lower limb; I10 Essential (primary) hypertension; J98.11 Atelectasis; D64.9 Anemia, unspecified; E03.9 Hypothyroidism, unspecified; F41.8 Other specified anxiety disorders; Z87.891 Personal history of nicotine dependence; N73.9 Female pelvic inflammatory disease, unspecified; G40.909 Epilepsy, unspecified, not intractable, without status epilepticus; G25.81 Restless legs syndrome; R53.81 Other malaise
CPT/HCPCS: 36569; 71010; 73721; 76937; 80048; 80053; 83735; 84100; 85025; 85610; 85651; 85730; 86140; 87040; 87081; 90686; 93005; 97162; J1335; J1650; J3480